=== PATIENT | female | born 1925 | race Caucasian/White ===

== ENCOUNTER → 2016-09-06 13:32 | Outpatient (CLI) | payer MEDICARE, BC | END | disposition home or self-care (01) | LOC: D.US 13:32 | DX: I70.213 Atherosclerosis of native arteries of extremities with intermittent claudication, bilateral legs (principal) ==

== ENCOUNTER → 2016-09-13 09:57 | Outpatient (CLI) | payer MEDICARE, BC | END | disposition home or self-care (01) | LOC: D.CT 09:57 | DX: I73.9 Peripheral vascular disease, unspecified (principal) ==